=== PATIENT | female | born 1995 | race Two or more races ===

== ENCOUNTER 2021-05-09 10:23 | Emergency (ER) | payer SELFPAY ==
[~2021-05-09] VITALS: Ht 160 cm; Wt 59.0 kg
[2021-05-09 11:55] LABS: Urine Bacteria FEW /hpf (None Seen); Urine Blood 2+ /uL (Negative); Urine Mucus MODERATE (None Seen); Urine Specific Gravity 1.032 (1.001-1.035); Urine WBC 3 /hpf (0 - 5)
[2021-05-09] MEDS ORDERED: PYRIDOXINE HCL 50 MG TAB PO ONE (13:00)
[2021-05-09] MEDS ORDERED: METOCLOPRAMIDE HCL 5MG/ml INJ 2ml VIAL IM ONE (13:00)
[2021-05-09 15:30] LABS: Basophils # (auto) 0 10 ^3/uL (0-0.2); Basophils % (auto) 0.5 % (0.0-2.0); Eosinophils # (auto) 0 10 ^3/uL (0-0.8); Hemoglobin 13.8 g/dL (12.2-16.2); Lymphocytes # (auto) 1.1 10 ^3/uL (0.4-5.4); Mean Corpuscular Hemoglobin 30.8 pg (28.0-32.0); Mean Corpuscular Hgb Conc. 33.8 g/dL (32.0-36.0); Mean Corpuscular Volume 91.1 fL (80.0-100.0); Monocytes # (auto) 0.4 10 ^3/uL (0-1.3); Monocytes % (auto) 4.3 % (0.0-12.0); Neutrophils # (auto) 8.2 10 ^3/uL (1.6-8.6); Neutrophils % (auto) 84.2 % (37.0-80.0); Nucleated Red Blood Cells % 0.2 %; Red Cell Distribution Width 13.2 % (11.8-14.3); White Blood Cell 9.7 10^3/uL (4.4-10.8)
[2021-05-09] MEDS ORDERED: CEPHALEXIN 250 MG CAP PO ONE (15:30)
[2021-05-09 15:40] LABS: Albumin 4.2 g/dL (3.4-5.0); Calcium 9.7 mg/dL (8.5-10.1); Potassium 3.5 mmol/L (3.5-5.1)
[2021-05-09 15:45] LABS: BUN/Creatinine Ratio 20.7; Bilirubin, Total 0.8 mg/dL (0.2-1.0); Total Protein 8.9 g/dL (6.4-8.2)
[2021-05-09 16:40] VITALS: BP 105/63
== END 2021-05-09 16:46 | disposition home or self-care (01) ==
LOC: ER 10:23
DX: O23.41 Unspecified infection of urinary tract in pregnancy, first trimester (principal); O21.9 Vomiting of pregnancy, unspecified; Z3A.01 Less than 8 weeks gestation of pregnancy
CPT/HCPCS: 36415; 76801; 76817; 80053; 81001; 81025; 84702; 85025; 96372; 99285; J2765